=== PATIENT | female | born 1990 | race African-American/Black ===

== ENCOUNTER 2019-02-07 12:55 | Emergency (ER) | payer MEDICAID ==
[~2019-02-07] VITALS: Ht 152.4 cm; Wt 68.4 kg
[2019-02-07 19:22] VITALS: BP 100/50
== END 2019-02-07 19:26 | disposition home or self-care (01) ==
LOC: ED 16:58
DX: J02.8 Acute pharyngitis due to other specified organisms (principal); R10.2 Pelvic and perineal pain; R10.31 Right lower quadrant pain; B97.89 Other viral agents as the cause of diseases classified elsewhere
CPT/HCPCS: 36415; 74176; 76830; 80053; 81001; 84703; 85025; 99284